=== PATIENT | male | born 1960 | race African-American/Black ===

== ENCOUNTER 2020-09-29 09:36 | Emergency (ER) | payer OTHER ==
[~2020-09-29] VITALS: Ht 170.2 cm; Wt 109.0 kg
[~2020-09-29 09:36] MED LIST: INSLAN SQ; INSLIS SQ
[2020-09-29 13:15] LABS: CHLORIDE 96 mEq/L (98-107)
[2020-09-29 13:29] LABS: BASOPHILS % 0.3 % (0.0-2.0); HEMATOCRIT. 40.3 % (42.0-52.0); HEMOGLOBIN. 13.1 g/dL (14.0-18.0); LYMPHOCYTES % 24.6 % (20.0-50.0); MEAN CORPUSCULAR HEMOGLOBIN 23.1 pg (28.0-32.0); MEAN CORPUSCULAR VOLUME 71.1 fL (80.0-94.0); MEAN PLATELET VOLUME 9.1 fl (7.4-10.4); MONOCYTES % 8.2 % (2.0-8.0); NEUTROPHILS % 66.9 % (40.0-76.0); PLATELET 164 x1000/uL (130-400); RED BLOOD CELL COUNT 5.67 mill/uL (4.7-6.1); RED CELL DISTRIBUTION WIDTH 13.1 % (11.6-14.6)
[2020-09-29 14:29] VITALS: BP 144/107
[2020-09-29] MEDS ORDERED: ACETAMINOPHEN 325MG TABLET PO ONE (14:30)
[2020-09-29] MEDS ORDERED: IBUPROFEN 400MG TABLET PO ONE (14:30)
== END 2020-09-29 14:30 | disposition home or self-care (01) ==
LOC: ER 09:45
DX: R05 Cough (principal); R51.9 Headache, unspecified; E11.9 Type 2 diabetes mellitus without complications; I10 Essential (primary) hypertension; Z98.890 Other specified postprocedural states; Z20.822 Contact with and (suspected) exposure to COVID-19
CPT/HCPCS: 36415; 71045; 80053; 85025; 99284; C9803; U0003; U0005

== ENCOUNTER 2022-03-27 08:14 | Emergency (ER) | payer MEDICAID, OTHER ==
[~2022-03-27] VITALS: Ht 170.2 cm; Wt 100.0 kg
[2022-03-27 08:27] VITALS: BP 133/83
[2022-03-27] MEDS ORDERED: IBUPROFEN 400MG TABLET PO ONE (09:30)
== END 2022-03-27 11:49 | disposition home or self-care (01) ==
LOC: ER 08:14
DX: S89.91XA Unspecified injury of right lower leg, initial encounter (principal); E11.9 Type 2 diabetes mellitus without complications; I10 Essential (primary) hypertension; W22.8XXA Striking against or struck by other objects, initial encounter; Y93.89 Activity, other specified; Y92.89 Other specified places as the place of occurrence of the external cause; Y99.8 Other external cause status
CPT/HCPCS: 99281; Z7610

== ENCOUNTER 2022-04-07 09:43 | Emergency (ER) | payer OTHER ==
[~2022-04-07] VITALS: Ht 165.1 cm; Wt 75.0 kg
[2022-04-07 09:48] VITALS: BP 178/134
== END 2022-04-07 14:04 | disposition home or self-care (01) ==
LOC: ER 09:43
DX: R04.0 Epistaxis (principal); E11.9 Type 2 diabetes mellitus without complications; I10 Essential (primary) hypertension
CPT/HCPCS: 99281

== ENCOUNTER 2022-04-09 06:01 | Emergency (ER) | payer OTHER ==
[~2022-04-09] VITALS: Ht 165.1 cm; Wt 91.1 kg
[2022-04-09] MEDS ORDERED: OXYMETAZOLINE HCL NASAL SPRAY 15ML BOTHNSTRLS STA (08:15)
[2022-04-09] MEDS ORDERED: OXYM30SP26 BOTHNSTRLS (09:04)
[2022-04-09 10:10] VITALS: BP 133/70
== END 2022-04-09 10:12 | disposition home or self-care (01) ==
LOC: ER 06:01
DX: R04.0 Epistaxis (principal); E11.9 Type 2 diabetes mellitus without complications; Z79.4 Long term (current) use of insulin
CPT/HCPCS: 99282